=== PATIENT | male | born 1980 | race American Indian/Alaskan Native ===

== ENCOUNTER 2020-07-30 07:29 | Day surgery (SDC) | payer OTHER ==
[~2020-07-30 07:29] MED LIST: ACETAMINOPHEN 500 MG TAB PO SCH; LACTATED RINGERS 1,000 ML IV SCH; MIDAZOLAM 2 MG/2 ML INJ IV NR
[2020-07-30] MEDS ORDERED: ceFAZolin/STERILE WATER 2 GM/20 ML SYRINGE IV NR (08:00)
[2020-07-30] MEDS ORDERED: HEPARIN 5,000 UNIT/1 ML VIAL SUB-Q NR (08:00)
[2020-07-30] MEDS ORDERED: BUPIVACAINE/PF (0.5%) 5 MG/1 ML 30 ML VIAL INFILTRATI ONE ×2 (08:27→08:51)
[2020-07-30] MEDS ORDERED: BUPIVACAINE/PF (0.25%) 2.5 MG/ML 30 ML VIAL INFILTRATI ONE (08:28)
[2020-07-30] MEDS ORDERED: ONDANSETRON 4 MG/2 ML INJ IV PRN (08:28)
[2020-07-30] MEDS ORDERED: HYDROcodone/ACETAMINOPHEN 5-325 MG TAB PO PRN (08:28)
[2020-07-30] MEDS ORDERED: fentaNYL 100 MCG/2 ML INJ IV PRN (08:28)
--- NOTE | 2020-07-30 08:28 | Anesthesia Day of Surgery ---
Anesthesia Day of Surgery - Day of Surgery Patient Examined: Yes Patient H&P Reviewed: Yes Patient is NPO: Yes
--- NOTE | 2020-07-30 08:28 | Anesthesia Consultation ---
Anesthesia Consult and Med Hx Date of service: 07/30/20 - Airway Anesthetic Teeth Evaluation: Good ROM Head & Neck: Adequate Mental/Hyoid Distance: Adequate Mallampati Class: Class III Intubation Access Assessment: Possibly Difficult - Pulmonary Exam CTA: Yes - Cardiac Exam Cardiac Exam: RRR - Pre-Operative Health Status ASA Pre-Surgery Classification: ASA2 Proposed Anesthetic Plan: General - Pulmonary Hx Smoking: No Hx Respiratory Symptoms: No Hx Sleep Apnea: No (COLT PRE SCREEN HIGH RISK) - Cardiovascular System Hx Hypertension: Yes ("monitoring," no rx yet) Hx Heart Attack/AMI: No Hx Percutaneous Transluminal Coronary Angioplasty (PTCA): No - Central Nervous System CVA: No - Endocrine Hx Renal Disease: No Hx Liver Disease: No Hx Insulin Dependent Diabetes: No Hx Non-Insulin Dependent Diabetes: No Hx Thyroid Disease: No - Other Systems Hx Obesity: Yes (BMI 36)
[2020-07-30] MEDS ORDERED: BUPIVACAINE-EPINEPHRINE/PF 0.5%-1:200,000 (10 ML) VIAL INFILTRATI ONE (08:29)
[2020-07-30] MEDS ORDERED: fentaNYL 250 MCG/5 ML INJ ONE (08:40)
[2020-07-30] MEDS ORDERED: ONDANSETRON 4 MG/2 ML INJ ONE (08:40)
[2020-07-30] MEDS ORDERED: SUCCINYLCHOLINE CHLORIDE 200 MG/10 ML INJ MDV ONE (08:40)
[2020-07-30] MEDS ORDERED: propofoL 200 MG/20 ML VIAL IV ONE (08:41)
[2020-07-30] MEDS ORDERED: LIDOCAINE 1%/EPINEPHRINE 1:100,000 VIAL (20 ML) INFILTRATI ONE (08:52)
[2020-07-30] MEDS ORDERED: LIDOCAINE (1%) 10 MG/1 ML VIAL 20 ML MDV ONE (08:56)
[2020-07-30] MEDS ORDERED: LIDOCAINE MPF (2%) 20 MG/1 ML VIAL 5 ML ONE (10:30)
[2020-07-30] MEDS ORDERED: dexAMETHasone 20 MG/5 ML VIAL ONE (10:30)
[2020-07-30] MEDS ORDERED: ePHEDrine SULFATE 50 MG/1 ML INJ ONE (10:45)
[2020-07-30] MEDS ORDERED: SUGAMMADEX SODIUM 200 MG/2 ML VIAL IV ONE ×2 (11:09→11:10)
--- NOTE | 2020-07-30 11:41 | Procedure Note ---
Date of procedure: 07/30/20 Pre-op diagnosis: Back lipoma, 10 cm Post-op diagnosis: same Procedure: Excision of back lipoma, 10 cm Description of procedure: Pt was intubated supine on his pre-op stretcher. He was then repositioned prone on the OR table. Upper back was prepped and draped. Skin and SQ tissue over the mass were infiltrated with 8 ml of 0.5% Marcaine with epinephrine. Skin was incised with a scalpel. The mass was excised down to the back musculature with Bovie dissection. Hemostasis was obtained with the Bovie. Wound was irrigated with warm saline. Deep dermis was approximated with interrupted sutures of 3-0 Vicryl. Skin was approximated with a running subcuticular suture of 4-0 Monocryl. A sterile pressure dressing was applied and this was secured with Medipore tape. Pt tolerated the procedure well. Pt was extubated in the OR and was taken to PACU in stable condition. Anesthesia: GETA Surgeon: BRENDA DELGADILLO Estimated blood loss: minimal Pathology: list (Back lipoma) Specimen disposition: to lab Condition: stable Disposition: PACU
--- NOTE | 2020-07-30 13:44 | Post Anesthesia Evaluation ---
- Post Anesthesia Evaluation Patient Participated: Yes Airway Patent: Yes Stable Respiratory Function: Yes Nausea/Vomiting: No Temp > 96.8F: Yes Pain Manageable: Yes Adequeate Hydration: Yes Anesthesia Complications: No
[2020-07-30 14:09] VITALS: BP 118/67
== END 2020-07-30 07:30 | disposition home or self-care (01) ==
LOC: OR 07:29 → EDBD 09:15
PROVIDERS: ATTEND Surgery
DX: D17.1 Benign lipomatous neoplasm of skin and subcutaneous tissue of trunk (principal); I10 Essential (primary) hypertension; E78.00 Pure hypercholesterolemia, unspecified; E66.9 Obesity, unspecified; Z98.890 Other specified postprocedural states; Z79.899 Other long term (current) drug therapy; Z68.36 Body mass index [BMI] 36.0-36.9, adult
CPT/HCPCS: 21931; 88304; J0330; J0690; J1100; J1644; J2250; J2405; J2704; J3010; J7120